=== PATIENT | male | born 1970 | race Caucasian/White ===

== ENCOUNTER 2016-07-08 06:38 | Emergency (ER) | payer OTHER ==
[2016-07-08] MEDS ORDERED: IOPAMIDOL 370 (76%) 100 ML VIAL IV ONE (06:39)
[2016-07-08] MEDS ORDERED: DIAZEPAM 5 MG TABLET ONE (07:07)
[2016-07-08 08:59] LABS: CALCIUM 9.3 mg/dL (8.6-10.3)
[2016-07-08] MEDS ORDERED: HYDROCODONE/ACETAMINOPHEN 5/325MG TABLET ONE (09:22)
--- NOTE | 2016-07-08 10:09 | CT ---
ADDENDUM #1 Three-dimensional rotational reformatted imaging of the thoracic aorta was performed with maximum intensity projection technique on a dedicated workstation, and reviewed separately. ORIGINAL REPORT CHEST CTA HISTORY: Pain between shoulder blades.. TECHNIQUE: Following the administration of 100 cc Isovue-300 intravenous contrast, contiguous axial images were acquired from the thoracic inlet to the diaphragmatic hiatus for CT aortic angiography. FINDINGS: PULMONARY ARTERIAL TREE: Technically adequate enhancement: No dominant filling defects. THORACIC AORTA: Normal caliber. No evidence of dissection. LUNGS: Minor atelectatic change without airspace consolidation, pleural effusion, or pneumothorax.. AMBER AND MEDIASTINUM: No abnormally enlarged lymph nodes. Small hiatal hernia. AXILLAE: No grossly enlarged lymph nodes. UPPER ABDOMEN:No gross mass effect. OSSEOUS STRUCTURES: No grossly destructive lesions. No compression deformity. Evidence of cervical disc degeneration at the C6-7 level. IMPRESSION: 1. No CTA evidence of proximal order pulmonary embolus. Normal CTA appearance of the thoracic aorta without evidence of aneurysmal dilatation or dissection. 2. No gross airspace disease, pleural effusion, or pneumothorax. 3. Small hiatal hernia. Results were electronically transmitted to the electronic medical record at 07/08/2016 at 1005 hours.
== END 2016-07-08 10:40 | disposition home or self-care (01) ==
LOC: ED 06:38
DX: M54.6 Pain in thoracic spine (principal); R06.02 Shortness of breath
CPT/HCPCS: 80048; 71275; 99284; 99283; A9270 ×2; Q9967